=== PATIENT | female | born 1990 | race Caucasian/White ===

== ENCOUNTER 2017-11-06 16:13 | Inpatient (IN) | payer OTHER ==
[2017-11-06 17:57] LABS: RUPTURE FETAL MEMBRANES NEGATIVE (NEGATIVE)
[2017-11-06] MEDS: BETAMET NA PHOS/AC(6 MG/ML) 5ML INJ IM (20:11)
[2017-11-06] MEDS: LACTATED RINGER'S 1,000 ML IV (20:12)
[2017-11-06] MEDS: MAGNESIUM SULFATE 4 GM/100 ML 100 ML IV (21:16)
[2017-11-06] MEDS: MAGNESIUM SULFATE 20 GM/500 ML 500 ML IV (21:51)
[2017-11-07 01:22] LABS: MAGNESIUM 3.9 mg/dl (1.7-2.5)
[2017-11-07] MEDS: LACTATED RINGER'S 1,000 ML IV ×2 (06:13→19:49)
[2017-11-07 07:41] LABS: MAGNESIUM 4.8 mg/dl (1.7-2.5)
[2017-11-07] MEDS: MAGNESIUM SULFATE 20 GM/500 ML 500 ML IV ×2 (08:20→19:50)
[2017-11-07] MEDS: PRENATAL VITAMIN PO (08:20)
[2017-11-07 14:17] LABS: MAGNESIUM 5.2 mg/dl (1.7-2.5)
[2017-11-07 19:04] LABS: MAGNESIUM 4.9 mg/dl (1.7-2.5)
[2017-11-07] MEDS: BETAMET NA PHOS/AC(6 MG/ML) 5ML INJ IM (20:28)
[2017-11-07] MEDS: DOCUSATE SODIUM 100 MG CAP PO (21:39)
[2017-11-08 01:16] LABS: MAGNESIUM 4.6 mg/dl (1.7-2.5)
[2017-11-08] MEDS: LACTATED RINGER'S 1,000 ML IV ×2 (07:50→18:22)
[2017-11-08 07:54] LABS: MAGNESIUM 4.7 mg/dl (1.7-2.5)
[2017-11-08] MEDS: PRENATAL VITAMIN PO (09:27)
[2017-11-08] MEDS: MAGNESIUM SULFATE 20 GM/500 ML 500 ML IV ×2 (10:20→20:45)
[2017-11-08 12:32] LABS: MAGNESIUM 4.7 mg/dl (1.7-2.5)
[2017-11-08 18:07] LABS: MAGNESIUM 4.3 mg/dl (1.7-2.5)
[2017-11-08] MEDS: DOCUSATE SODIUM 100 MG CAP PO (20:54)
[2017-11-09 01:02] LABS: MAGNESIUM 2.7 mg/dl (1.7-2.5)
[2017-11-09] MEDS: PRENATAL VITAMIN PO (10:04)
== END 2017-11-09 20:00 | disposition home or self-care (01) | DRG 780 ==
LOC: OBT 16:13 → L-D 11-08 15:48 → OBT 20:08 → L-D 19:43
PROVIDERS: Obstetrics & Gynecology
DX: O47.03 False labor before 37 completed weeks of gestation, third trimester (principal); Z3A.33 33 weeks gestation of pregnancy
CPT/HCPCS: 76817; 76818; 83735; 84112; 87086

== ENCOUNTER 2017-12-06 01:52 | Inpatient (IN) | payer OTHER ==
[2017-12-06] MEDS ORDERED: LACTATED RINGER'S 1,000 ML IV ×2 (03:43)
[2017-12-06] MEDS ORDERED: MISOPROSTOL 200 MCG TAB PR (04:00)
[2017-12-06] MEDS ORDERED: BUTORPHANOL 1 MG INJ IV (04:00)
[2017-12-06] MEDS ORDERED: LIDOCAINE 1% (MPF) 30 ML INJ INJ (04:00)
[2017-12-06] MEDS ORDERED: OXYTOCIN 30 UNITS/LR 500 ML IV ×3 (04:00)
[2017-12-06] MEDS ORDERED: BUTORPHANOL 2 MG INJ IV (04:00)
[2017-12-06] MEDS ORDERED: CARBOPROST 250 MCG INJ IM (04:00)
[2017-12-06] MEDS ORDERED: METHYLERGONOVINE 0.2 MG INJ IM (04:00)
[2017-12-06] MEDS: LACTATED RINGER'S 1,000 ML IV ×2 (04:25→13:40)
[2017-12-06 05:05] LABS: ADD MAN DIFF? NO
[2017-12-06 05:07] LABS: WHITE BLOOD COUNT 15.3 10^3/ul (4.8-10.8)
[2017-12-06 05:07] LABS: BASOPHIL # 0.1 10^3/ul (0.0-0.1); BASOPHILS % 0.5 % (0.0-2.0); EOSINOPHILS # 0.2 10^3/ul (0.0-0.5); EOSINOPHILS % 1.6 % (0.0-7.0); HEMATOCRIT 34.9 % (37.0-47.0); HEMOGLOBIN 11.7 g/dl (12.0-16.0); LYMPHOCYTES # 2.4 10^3/ul (0.8-2.9); LYMPHOCYTES % 15.8 % (15.0-51.0); MEAN CORPUSCULAR HEMOGLOBIN 28.5 pg (29.0-33.0); MEAN CORPUSCULAR HGB CONC 33.5 g/dl (32.0-37.0); MEAN CORPUSCULAR VOLUME 85.1 fl (82.0-101.0); MEAN PLATELET VOLUME 11.7 fl (7.4-10.4); MONOCYTES % 6.7 % (0.0-11.0); NEUTROPHIL # 11.3 10^3/ul (1.6-7.5); NEUTROPHILS % 73.9 % (39.0-77.0); PLATELET COUNT 200 10^3/UL (140-415); RED CELL DISTRIBUTION WIDTH 13.5 % (11.5-14.5)
[2017-12-06 05:28] LABS: INR 0.98; PARTIAL THROMBOPLASTIN TIME 34.8 Sec (25.0-35.0); PROTIME 13.1 Sec (11.9-14.9)
[2017-12-06] MEDS: AMPICILLIN 2 GM/NS (PMX) 100 ML IV (05:29)
[2017-12-06 06:15] LABS: HEPATITIS B SURFACE ANTIGEN NEGATIVE (NEGATIVE)
[2017-12-06 07:41] LABS: ALANINE AMINOTRANSFERASE 31 IU/L (13-69); ALBUMIN 3.4 g/dl (3.3-4.9); ALKALINE PHOSPHATASE 234 IU/L (42-121); ANION GAP 14 (8-16); ASPARTATE AMINO TRANSFERASE 24 IU/L (15-46); BILIRUBIN,INDIRECT 0.1 mg/dl (0-1.1); BILIRUBIN,TOTAL 0.1 mg/dl (0.2-1.3); BLOOD UREA NITROGEN 7 mg/dl (7-20); CALCIUM 8.9 mg/dl (8.4-10.2); CARBON DIOXIDE 21 mmol/L (21-31); CHLORIDE 110 mmol/L (97-110); CREATININE 0.51 mg/dl (0.44-1.00); GLUCOSE 86 mg/dl (70-220); POTASSIUM 3.9 mmol/L (3.5-5.1); SODIUM 141 mmol/L (135-144); TOTAL PROTEIN 6.8 g/dl (6.1-8.1); URIC ACID 5.5 mg/dl (3.1-7.9)
[2017-12-06] MEDS: AMPICILLIN 1 GM/NS (PMX) 50 ML IV ×4 (08:47→20:54)
[2017-12-06 15:04] LABS: RAPID PLASMA REAGIN NONREACTIVE (NR)
== END 2017-12-06 23:40 | disposition home or self-care (01) | DRG 782 ==
LOC: OBT 01:52 → L-D 01:52 → OBT 03:50 → L-D 03:52
PROVIDERS: Obstetrics & Gynecology
DX: O62.0 Primary inadequate contractions (principal); Z3A.38 38 weeks gestation of pregnancy
CPT/HCPCS: 76818; 80053; 84560; 85025; 85610; 85730; 86592; 86850; 86900; 86901; 87340

== ENCOUNTER 2017-12-08 06:35 | Inpatient (IN) | payer OTHER ==
[2017-12-08] MEDS ORDERED: AMPICILLIN 2 GM/NS (PMX) 100 ML (07:03)
[2017-12-08] MEDS ORDERED: LIDOCAINE 1% (MPF) 30 ML INJ (07:04)
[2017-12-08] MEDS ORDERED: LACTATED RINGER'S 1,000 ML IV ×2 (07:12)
[2017-12-08 07:18] LABS: ADD MAN DIFF? NO
[2017-12-08 07:25] LABS: WHITE BLOOD COUNT 15.1 10^3/ul (4.8-10.8)
[2017-12-08 07:25] LABS: BASOPHILS % 0.2 % (0.0-2.0); EOSINOPHILS # 0.2 10^3/ul (0.0-0.5); EOSINOPHILS % 1.3 % (0.0-7.0); HEMATOCRIT 36.3 % (37.0-47.0); HEMOGLOBIN 12.1 g/dl (12.0-16.0); LYMPHOCYTES # 2.3 10^3/ul (0.8-2.9); MEAN CORPUSCULAR HEMOGLOBIN 28.5 pg (29.0-33.0); MEAN CORPUSCULAR HGB CONC 33.3 g/dl (32.0-37.0); MEAN CORPUSCULAR VOLUME 85.4 fl (82.0-101.0); MEAN PLATELET VOLUME 10.6 fl (7.4-10.4); MONOCYTE # 0.8 10^3/ul (0.3-0.9); MONOCYTES % 5.6 % (0.0-11.0); NEUTROPHIL # 11.7 10^3/ul (1.6-7.5); NEUTROPHILS % 76.9 % (39.0-77.0); PLATELET COUNT 265 10^3/UL (140-415); RED BLOOD COUNT 4.25 10^6/ul (4.20-5.40); RED CELL DISTRIBUTION WIDTH 13.8 % (11.5-14.5)
[2017-12-08] MEDS ORDERED: MISOPROSTOL 200 MCG TAB PR ×2 (07:30→10:00)
[2017-12-08] MEDS ORDERED: OXYTOCIN 30 UNITS/LR 500 ML IV ×2 (07:30→10:00)
[2017-12-08] MEDS ORDERED: METHYLERGONOVINE 0.2 MG INJ IM ×2 (07:30→10:00)
[2017-12-08] MEDS ORDERED: LIDOCAINE 1% (MPF) 30 ML INJ INJ (07:30)
[2017-12-08] MEDS ORDERED: IBUPROFEN 600 MG TAB PO (07:30)
[2017-12-08] MEDS ORDERED: CARBOPROST 250 MCG INJ IM ×2 (07:30→10:00)
[2017-12-08] MEDS: OXYTOCIN 30 UNITS/LR 500 ML IV ×2 (07:43→08:37)
[2017-12-08 07:44] LABS: INR 0.94; PROTIME 12.7 Sec (11.9-14.9)
[2017-12-08 07:45] LABS: PARTIAL THROMBOPLASTIN TIME 35.3 Sec (25.0-35.0)
[2017-12-08] MEDS: AMPICILLIN 2 GM/NS (PMX) 100 ML IV (07:50)
[2017-12-08] MEDS: BUTORPHANOL 2 MG INJ IV (07:51)
[2017-12-08] MEDS: LACTATED RINGER'S 1,000 ML IV* ×2 (09:38→17:38)
[2017-12-08] MEDS: WITCH HAZEL/GLYCERIN PAD PR (09:54)
[2017-12-08] MEDS: BENZOCAINE 20% 56 ML SPRAY TOP (09:54)
[2017-12-08] MEDS: HYDROCODONE/APAP (5/325) TAB PO ×3 (09:54→22:35)
[2017-12-08] MEDS: DIBUCAINE 1% 30 GM OINT PR (09:54)
[2017-12-08] MEDS ORDERED: ACETAMINOPHEN 325 MG TAB PO (10:00)
[2017-12-08] MEDS ORDERED: AMPICILLIN 1 GM/NS (PMX) 50 ML IV (11:30)
[2017-12-08] MEDS: IBUPROFEN 600 MG TAB PO ×3 (12:31→23:28)
[2017-12-08 14:56] LABS: RAPID PLASMA REAGIN NONREACTIVE (NR)
[2017-12-08] MEDS: SENNA/DOCUSATE NA (8.6MG/50MG) TAB PO (21:25)
[2017-12-08] MEDS: LANOLIN 7 GM TUBE TOP (23:29)
[2017-12-09] MEDS: IBUPROFEN 600 MG TAB PO ×4 (05:34→23:47)
[2017-12-09] MEDS: SENNA/DOCUSATE NA (8.6MG/50MG) TAB PO ×2 (09:04→20:34)
[2017-12-09] MEDS: HYDROCODONE/APAP (5/325) TAB PO (09:46)
[2017-12-09 11:11] LABS: ADD MAN DIFF? NO
[2017-12-09 11:19] LABS: WHITE BLOOD COUNT 14.5 10^3/ul (4.8-10.8)
[2017-12-09 11:19] LABS: BASOPHIL # 0.1 10^3/ul (0.0-0.1); BASOPHILS % 0.4 % (0.0-2.0); EOSINOPHILS # 0.2 10^3/ul (0.0-0.5); EOSINOPHILS % 1.7 % (0.0-7.0); HEMOGLOBIN 12.3 g/dl (12.0-16.0); LYMPHOCYTES # 3.9 10^3/ul (0.8-2.9); LYMPHOCYTES % 26.6 % (15.0-51.0); MEAN CORPUSCULAR HEMOGLOBIN 28.1 pg (29.0-33.0); MEAN CORPUSCULAR HGB CONC 32.4 g/dl (32.0-37.0); MEAN PLATELET VOLUME 10.9 fl (7.4-10.4); MONOCYTE # 0.9 10^3/ul (0.3-0.9); MONOCYTES % 6.1 % (0.0-11.0); NEUTROPHIL # 9.3 10^3/ul (1.6-7.5); NEUTROPHILS % 63.9 % (39.0-77.0); PLATELET COUNT 257 10^3/UL (140-415); RED BLOOD COUNT 4.37 10^6/ul (4.20-5.40)
[2017-12-10] MEDS: HYDROCODONE/APAP (5/325) TAB PO (00:15)
[2017-12-10] MEDS: IBUPROFEN 600 MG TAB PO ×2 (05:40→12:14)
[2017-12-10] MEDS: SENNA/DOCUSATE NA (8.6MG/50MG) TAB PO (10:23)
[2017-12-10] MEDS: DIPHTH/TET/ACEL PERTUSS (ADULT) 0.5 ML VIAL IM* (11:48)
== END 2017-12-10 16:46 | disposition home or self-care (01) | DRG 775 ==
LOC: OBT 06:35 → L-D 06:35 → OBT 07:09 → L-D 06:48 → PP1 09:34
PROVIDERS: Obstetrics & Gynecology
PROC: 10E0XZZ Delivery of Products of Conception, External Approach (ICD-10-PCS; principal; 2017-12-08)
PROC: 0UQGXZZ Repair Vagina, External Approach (ICD-10-PCS; 2017-12-08)
PROC: 4A1HXCZ Monitoring of Products of Conception, Cardiac Rate, External Approach (ICD-10-PCS; 2017-12-08)
PROC: 3E0234Z Introduction of Serum, Toxoid and Vaccine into Muscle, Percutaneous Approach (ICD-10-PCS; 2017-12-10)
DX: O99.824 Streptococcus B carrier state complicating childbirth (principal); O69.81X0 Labor and delivery complicated by cord around neck, without compression, not applicable or unspecified; O71.4 Obstetric high vaginal laceration alone; Z3A.38 38 weeks gestation of pregnancy; Z37.0 Single live birth; Z23 Encounter for immunization
CPT/HCPCS: 85025; 85610; 85730; 86592; 90715